=== PATIENT | female | born 1945 | race Caucasian/White ===

== ENCOUNTER 2018-10-06 15:08 | Emergency (ER) | payer MEDICARE, OTHER ==
[2018-10-06 17:06] LABS: #Eosinphils 0.1 thou/uL (0.0-0.7); #Lymphocytes 1.1 thou/uL (1.20-3.40); #Monocytes 0.3 thou/uL (0.11-0.59); #Neutrophils 4.9 thou/uL (1.40-6.50); %Basophils 0.5 % (0.0-1.0); %Eosinophils 0.9 % (0.0-10.0); %Lymphocytes 16.8 % (21.0-51.0); %Monocytes 5.3 % (0.0-10.0); %Neutrophils 76.4 % (42.0-75.0); Hemoglobin 10.3 g/dL (12.0-16.0); Mean Corpuscular HGB CONC 33.1 g/dL (32.0-36.0); Mean Corpuscular Hemoglobin 31.7 pg (27.0-31.0); Mean Corpuscular Volume 95.7 fL (78.0-98.0); Platelet Count 270 thou/uL (130-400); RBC Distribution Width 13.1 % (11.5-14.5); Red Blood Cell (RBC) Count 3.25 mill/uL (4.20-5.40); White Blood Cell (WBC) Count 6.4 thou/uL (4.8-10.8)
[2018-10-06 17:13] LABS: ALT (SGPT) 12 U/L (8-55); AST (SGOT) 21 U/L (5-34); Albumin 3.6 g/dL (3.4-4.8); Alkaline Phosphatase 37 U/L (40-150); Anion Gap 13 mmol/L (10-20); BUN (Urea Nitrogen) 23 mg/dL (9.8-20.1); Bilirubin, Total 0.6 mg/dL (0.2-1.2); Calc. Creatinine Clearance 0 mL/min (70-130); Calcium 9.7 mg/dL (7.8-10.44); Carbon Dioxide 23 mmol/L (23-31); Chloride 107 mmol/L (98-107); Estimated GFR-MDRD 49; Globulin 2.7 g/dL (2.4-3.5); Glucose 172 mg/dL (83-110); Potassium 4.2 mmol/L (3.5-5.1); Protein, Total 6.3 g/dL (6.0-8.3); Sodium 139 mmol/L (136-145)
[2018-10-06 17:43] LABS: Bilirubin Negative (Negative); Blood, Urine Negative (Negative); Clarity CLOUDY (Clear); Glucose, Urine (Dipstick) Negative (Negative); Leukocyte Negative (Negative); Nitrite Negative (Negative); Protein, Urine (Dipstick) Negative (Neg-Trace); Specific Gravity, Urine 1.013 (1.002-1.036)
--- NOTE | 2018-10-06 19:35 | CT ---
NONCONTRAST CT HEAD: 10/06/18 HISTORY: Weakness and nausea. Fall after standing from toilet. History of prior strokes and now has memory los s. COMPARISON: 08/04/11. FINDINGS: There is decreased attenuation in the periventricular white matter likely reflective of chronic small vessel ischemic changes which has certainly progressed from the prior exam. Small low density area s een anterior aspect of the right thalamus related to lacunar infarction of indeterminate age. There a re low density areas in the more posterior inferior aspect of the right basal ganglia also seen on th e prior study which may represent dilated perivascular spaces versus remote lacunar infarctions. Smal l area of encephalomalacia is seen adjacent to the occipital horn and atria of the left lateral ventr icle which may be related to remote white matter infarction. There is no evidence of an acute cortica l infarction, hemorrhage, mass effect or midline shift. Mild diffuse cerebral volume loss is present. The ventricular system is normal in size, shape and position. The visualized paranasal sinuses and m astoid air cells are clear. Calvarial structures are intact. IMPRESSION: 1. No acute intracranial abnormality demonstrated. 2. Interval progression in chronic small vessel ischemic changes from prior study in 2010. 3. 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 4. Area of encephalomalacia adjacent to the atria and occipital horn left lateral ventricle like ly related to prior white matter infarction. 5. Cerebral volume loss. POS: ALONDRA
== END 2018-10-06 18:52 | disposition home or self-care (01) ==
LOC: ERS 15:08
DX: I10 Essential (primary) hypertension (principal); E11.9 Type 2 diabetes mellitus without complications; Z79.899 Other long term (current) drug therapy; Z79.82 Long term (current) use of aspirin; Z79.891 Long term (current) use of opiate analgesic; Z79.84 Long term (current) use of oral hypoglycemic drugs; W17.89XA Other fall from one level to another, initial encounter; Y92.002 Bathroom of unspecified non-institutional (private) residence as the place of occurrence of the external cause
CPT/HCPCS: 51701; 70450; 80053; 81003; 85025; 93005; A4353